=== PATIENT | female | born 1950 | race African-American/Black ===

== ENCOUNTER 2017-12-07 18:12 | Inpatient (IN) | payer OTHER, MEDICARE ==
[~2017-12-07] VITALS: Ht 162.6 cm; Wt 73.5 kg
--- NOTE | 2017-12-07 18:31 | NUR ---
PT TO ER BED 11. 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 A/A/O. AMULATORY. CHANGED TO GOWM. SIDE RAIS LUP. HOB ELEVATED. CONNECTED TO MONITOR. AWAITING EVALUATION BY ER PROVIDER.
[2017-12-07] MEDS ORDERED: NITROGLYCERIN PACKET 1 GM PACKET ONE (18:42)
[2017-12-07] MEDS ORDERED: ASPIRIN 325 MG TABLET ONE (18:42)
--- NOTE | 2017-12-07 18:46 | NUR ---
MEDICATED PER MD ORDER. EKG AT BEDSIDE.
[2017-12-07 18:48] LABS: BASOPHILS # (AUTO) 0.1 /CMM (0.0-0.2); BASOPHILS % (AUTO) 1.5 % (0.0-2.0); EOSINOPHILS % (AUTO) 0.9 % (0.0-6.0); HEMATOCRIT 36 % (33-45); HEMOGLOBIN 12.5 g/dL (11.5-14.8); LYMPHOCYTES # (AUTO) 2.4 /CMM (0.8-4.8); LYMPHOCYTES % (AUTO) 32.2 % (20.0-44.0); MEAN CORPUSCULAR HGB CONC 35 g/dl (31.0-36.0); MEAN CORPUSCULAR VOLUME 94 fL (82-100); MONOCYTES # (AUTO) 0.4 /CMM (0.1-1.30); MONOCYTES % (AUTO) 5.7 % (2.0-12.0); NEUTROPHILS # (AUTO) 4.3 /CMM (1.8-8.9); NEUTROPHILS % (AUTO) 59.7 % (43.0-81.0); PLATELET COUNT (AUTO) 290 /CMM (150-450); RDW COEFFICIENT OF VARIATION 13.7 (11.5-15.0); RED BLOOD CELL COUNT(AUTO) 3.82 MIL/uL (4.0-5.2); WHITE BLOOD COUNT (AUTO) 7.3 K/uL (4.3-11.0)
[2017-12-07 18:58] LABS: CALCIUM, SERUM 9.4 mg/dL (8.5-10.1); CARBON DIOXIDE 27 mmol/L (21-32); CHLORIDE 102 mmol/L (98-107); CREATININE 0.9 mg/dL (0.6-1.3); GLUCOSE 134 mg/dL (74-106); POTASSIUM 3.8 mmol/L (3.5-5.1); SODIUM SERUM 137 mmol/L (136-145); UREA NITROGEN, BLOOD 17 mg/dL (7-18)
[2017-12-07] MEDS ORDERED: ASPIRIN 325 MG TABLET PO ONE (19:00)
[2017-12-07] MEDS ORDERED: NITROGLYCERIN PACKET 1 GM PACKET TD ONE (19:00)
[2017-12-07 19:03] LABS: ALANINE AMINOTRANSFERASE 28 U/L (12-78); ALBUMIN 4.2 g/dL (3.4-5.0); ALKALINE PHOSPHATASE 80 U/L (46-116); ASPARTATE AMINOTRANSFERASE 22 U/L (15-37); BILIRUBIN,DIRECT 0.1 mg/dL (0.0-0.2); BILIRUBIN,TOTAL 0.5 mg/dL (0.2-1.0); TOTAL PROTEIN, SERUM 8.3 g/dL (6.4-8.2)
--- NOTE | 2017-12-07 19:03 | NUR ---
RECEIVED REPORT FROM ARIK KIDD FOR TOMMY.
[2017-12-07 19:06] LABS: TROPONIN I < 0.017 ng/mL (0.00-0.056)
[2017-12-07 19:07] LABS: INR 0.94 (0.85-1.15)
[2017-12-07] MEDS ORDERED: POTA10CA43 PO (19:28)
[2017-12-07] MEDS ORDERED: FURO20TA4 PO (19:28)
[2017-12-07] MEDS ORDERED: AMLO10TA6 PO (19:28)
[2017-12-07] MEDS ORDERED: BENA10TA9 PO (19:28)
--- NOTE | 2017-12-07 20:00 | NUR ---
[facility])- [phone]
--- NOTE | 2017-12-07 20:03 | NUR ---
report given to ARIK Khan for hernán.
[2017-12-07 20:30] VITALS: BP 147/81
[2017-12-07] MEDS ORDERED: ASPI-1169 PO (20:53)
--- NOTE | 2017-12-07 20:58 | NUR ---
TELE/RN OPENING NOTES PT ARRIVED TO UNIT VIA GURNEY FROM ER. A/OX4. AT BEDSIDE. ON ROOM AIR, BREATHING EVEN AND UNLABORED. DENIES CP, N/V AND SOB AT THIS TIME. SAYS SHE WAS HAVING "CHEST DISCOMFORT" WHICH HAS NOW RESOLVED. IV TO RAC PATENT AND INTACT. BED ZERO-ED WITHOUT PUMP AT FOOT OF THE BED. PLACED ON TELE MONITOR, SHOWING SINUS RHYTHM, HR 90. ORIENTED TO ROOM AND CALL LIGHT. SNACK AT WATER PROVIDED. PT TO BE KEPT NPO POST MIDNIGHT FOR CARDIO CONSULT, PT VERBALIZED UNDERSTANDING. BED IN LOW/LOCKED POSITION WITH CALL LIGHT IN REACH. SIDE RAILS UPX2. ALL BELONGINGS ACCOUNTED FOR AND LIST COMPLETED/PLACED IN THE CHART. WILL CONTINUE TO MONITOR
[2017-12-07 21:00] VITALS: BP 147/81
[2017-12-07] MEDS ORDERED: MORPHINE SULFATE INJ 2 MG/ML DISP.SYRIN IV PRN (21:00)
[2017-12-07] MEDS ORDERED: ACETAMINOPHEN 325 MG TABLET PO PRN (21:00)
[2017-12-07] MEDS ORDERED: MAGNESIUM HYDROXIDE 30 ML UDC PO PRN (21:00)
[2017-12-07] MEDS ORDERED: MAG HYDROX/AL HYDROX/SIMETH 30 ML UDC PO PRN (21:00)
[2017-12-07] MEDS ORDERED: ZOLPIDEM TARTRATE 5 MG TABLET PO PRN (21:00)
[2017-12-07] MEDS ORDERED: HYDROCODONE/APAP 5/325MG 1 EACH TABLET PO PRN (21:00)
[2017-12-07] MEDS ORDERED: ONDANSETRON HCL/PF 4 MG/2 ML VIAL IVP PRN (21:00)
[2017-12-07] MEDS ORDERED: NITROGLYCERIN 0.4 MG/TAB BOTTLE SL PRN (21:00)
[2017-12-07] MEDS ORDERED: Z GUARD REMEDY 2 OZ OINT TP PRN (21:00)
[2017-12-07] MEDS: SIMVASTATIN 20 MG TABLET PO SCH (22:16)
--- NOTE | 2017-12-07 22:22 | NUR ---
TELE/RN NOTES PT C/O MILD HEADACHE. ADMINISTERED PRN TYLENOL ORDERED. WILL MONITOR FOR EFFECTIVENESS RT AT BEDSIDE FOR EKG
[2017-12-08] VITALS: BP 124/75
[2017-12-08 04:00] VITALS: BP_SYST 124; BP_DIAS 75; BP_DIAS 80
[2017-12-08 06:24] LABS: HEMATOCRIT 33 % (33-45); MEAN CORPUSCULAR HGB CONC 34 g/dl (31.0-36.0); MEAN CORPUSCULAR VOLUME 94 fL (82-100); PLATELET COUNT (AUTO) 256 /CMM (150-450); RDW COEFFICIENT OF VARIATION 14.5 (11.5-15.0); RED BLOOD CELL COUNT(AUTO) 3.44 MIL/uL (4.0-5.2); WHITE BLOOD COUNT (AUTO) 4.9 K/uL (4.3-11.0)
[2017-12-08 06:42] LABS: CALCIUM, SERUM 9.1 mg/dL (8.5-10.1); CREATININE 0.8 mg/dL (0.6-1.3); PHOSPHORUS 3.9 mg/dL (2.5-4.9); POTASSIUM 4.1 mmol/L (3.5-5.1)
[2017-12-08 06:46] LABS: THYROID STIMULATING HORMONE 5.592 uIU/mL (0.358-3.74)
--- NOTE | 2017-12-08 06:48 | NUR ---
TELE/RN CLOSING NOTES PT RESTING IN BED. A/OX4. ON ROOM AIR, BREATHING EVEN AND UNLABORED. DENIES SOB, CP, N/V AT THIS TIME. REMAINS ON TELE MONITOR SHOWING SR WITH HR 70. IV TO RAC PATENT AND INTACT. CURRENTLY NPO FOR CARDIO CONSULT. PT AWARE AND VERBALIZED UNDERSTANDING. NO SIGNIFICANT CHANGES OVERNIGHT. KEPT PT COMFORTABLE. ALL NEEDS MET. BED REMAINS IN LOW/LOCKED POSITION WITH CALL LIGHT IN REACH. SIDE RAILS UPX2. WILL ENDORSE TO DAY SHIFT RN TOMMY.
--- NOTE | 2017-12-08 07:27 | NUR ---
WALL INSULATION SPRAYER OPENING NOTES RECEIVED PATIENT IN STABLE CONDITION. IN NO APPARENT DISTRESS. BEDSIDE RAILS ARE UPX2. BED IS LOCKED AND LOWERED. CALL LIGHT IS WITHIN REACH. IV LINE IS INTACT AND PATENT. WILL CONTINUE TO MONITOR.
[2017-12-08 07:57] VITALS: BP 129/73
[2017-12-08] MEDS: ASPIRIN EC 81 MG TABLET.DR PO SCH (08:33)
[2017-12-08] MEDS: BENAZEPRIL HCL 10 MG TABLET PO SCH (08:34)
[2017-12-08] MEDS ORDERED: AMLODIPINE BESYLATE 10 MG TABLET PO SCH (09:00)
[2017-12-08 10:08] LABS: LYMPHOCYTES % (MANUAL) 51 % (16-48); MONOCYTES % (MANUAL) 9 % (0-11.0); NEUTROPHILS % (MANUAL) 37 (42-76)
[2017-12-08 10:09] LABS: EOSINOPHILS % (MANUAL) 3 % (0-4)
--- NOTE | 2017-12-08 15:00 | NUR ---
RN OPEN NOTES RECEIVED REPORT FROM ARIK LUJAN. PATIENT IS IN BED, AWAKE AND ALERT TO NAME, PLACE AND TIME. NO SIGNS AND SYMPTOMS OF DISTRESS. DENIED PAIN. BED IN LOW POSITION, LOCKED AND TWO SIDE RAILS ARE UP FOR SAFETY. CALL LIGHT WITHIN REACH. WILL CONTINUE TO ASSESS AND MONITOR PATIENT.
[2017-12-08 16:00] VITALS: BP 150/80
--- NOTE | 2017-12-08 18:57 | NUR ---
RN CLOSING NOTES PATIENT IS IN BED. ALERT AND ORIENTED TO NAME, PLACE AND TIME. NO SIGNS AND SYMPTOMS OF DISTRESS. DENIED PAIN. RESPIRATION REGULAR AND UNLABORED. IV SITE IS INTACT AND PATENT. PATIENT KEPT DRY, CLEAN AND SAFE. ALL NURSING CARE ANTICIPATED AND ATTENDED FOR. BED IS IN LOW POSITION, LOCKED AND TWO SIDE RAILS ARE UP. CALL LIGHT WITHIN REACH FOR SAFETY. WILL ENDORSE TO POLITICAL AIDE NURSE TO [facility].
--- NOTE | 2017-12-08 19:51 | NUR ---
MS/RN OPENING NOTES PT AWAKE, SITTING UP IN BED. ON ROOM AIR, BREATHING EVEN AND UNLABORED. DENIES SOB, CHEST PAIN/DISCOMFORT, N/V AT THIS TIME. IV TO RAC PATENT AND INTACT. PT FOR NM STRESS TEST TOMORROW, CONSENTS SIGNED IN THE CHART. PT VERBALIZES UNDERSTANDING AND WILL BE KEPT NPO POST MIDNIGHT. BED IN LOW/LOCKED POSITION WITH CALL LIGHT IN REACH. SIDE RAILS UPX2. WILL CONTINUE TO MONITOR
[2017-12-08 20:00] VITALS: BP 122/80
[2017-12-08 20:14] VITALS: BP 122/80
[2017-12-08] MEDS: SIMVASTATIN 20 MG TABLET PO SCH (22:28)
--- NOTE | 2017-12-09 07:20 | NUR ---
MS/RN CLOSING NOTES PT AWAKE, SITTING UP IN BED. A/OX4. REMAINS ON ROOM AIR, BREATHING EVEN AND UNLABORED. NO SOB, DENIES PAIN, CHEST DISCOMFORT THROUGHOUT SHIFT. NO SIGNIFICANT CHANGES OVERNIGHT. NEW IV INSERTED TO LEFT FA #[id number]. KEPT PT COMFORTABLE DURING SHIFT. ALL NEEDS MET. PT KEPT NPO FOR LEXISCAN TODAY. CONSENT SIGNED AND IN CHART. BED IN LOW/LOCKED POSITION WITH CALL LIGHT IN REACH. SIDE RAILS UPX2. ENDORSED TO DAY SHIFT RN TOMMY.
--- NOTE | 2017-12-09 07:24 | NUR ---
RN OPENING NOTES RECEIVED PATIENT IN BED RESTING, A/O X4. NO ACUTE DISTRESS, NO SOB. DENIED PAIN OR DISCOMFORT AT THIS TIME. IV SITE INTACT AND PATENT. KEPT PATIENT NPO FOR STRESS TEST TODAY. KEPT PATIENT SAFE AND COMFORTABLE. BED IN LOW/LOCKED POSITION, SIDERAILS UPX2, CALL LIGHT IN REACH. WILL CONTINUE TO MONITOR ACCORDINGLY.
[2017-12-09 07:54] VITALS: BP 113/74
[2017-12-09 08:00] VITALS: BP 113/74
[2017-12-09] MEDS ORDERED: REGADENOSON 0.4 MG/5 ML DISP.SYRIN IVP ONE (08:30)
--- NOTE | 2017-12-09 09:43 | NUR ---
NM: CARDIAC STRESS TEST WAS COMPLETED. TECH:RB.
[2017-12-09] MEDS: BENAZEPRIL HCL 10 MG TABLET PO SCH (09:45)
[2017-12-09] MEDS: ASPIRIN EC 81 MG TABLET.DR PO SCH (09:45)
[2017-12-09 16:00] VITALS: BP 122/74
--- NOTE | 2017-12-09 19:21 | NUR ---
RN CLOSING NOTES PATIENT IN STABLE CONDITION. ALL NEEDS ATTENDED AND PROVIDED. KEPT PATIENT SAFE AND COMFORTABLE. BED IN LOW/LOCKED POSITION, SIDERAILS UPX2, CALL LIGHT IN REACH. ENDORSED TO NIGHT RN FOR TOMMY.
--- NOTE | 2017-12-09 19:30 | NUR ---
MS RN OPENING NOTES RECEIVED PT SITTING UPRIGHT IN BED. A/O X4, AFEBRILE. RESPIRATIONS ARE EVEN AND UNLABORED, NOT IN ANY ACUTE DISTRESS NOTED. DENIES ANY PAIN, SOB, N/V AT THIS TIME. IV SITE INTACT, NO INFILTRATION NOTED. DRESSING KEPT CLEAN AND DRY. INFORMED PT'S BED ABOUT BEING A LITTLE TOO HIGH AND MAY WANT TO BRING BED DOWN FOR SAFETY REASONS. PER PT, "I AM FINE. I LIKE IT HIGH." EDUCATED ABOUT SAFETY MEASURES, PT VERBALIZED UNDERSTANDING. WILL CONTINUE TO MONITOR THROUGHOUT SHIFT.
[2017-12-09 19:55] VITALS: BP 117/62
[2017-12-09 20:00] VITALS: BP 117/62
--- NOTE | 2017-12-09 23:30 | NUR ---
MS RN NOTES PT ASSIGNED TO ANOTHER RN. PT IS CURRENTLY STABLE AT THIS TIME. REPORT GIVEN FOR CONTINUITY OF CARE.
--- NOTE | 2017-12-10 06:26 | NUR ---
MS RN CLOSING NOTE Patient was seen AAOx4, breathing comfortably on RA with no SOB, and no signs of acute distress. Vitals WNL, no complaints of chest pain. Patient slept well overnight. SL 22g IV is in left FA. Bed is in low/locked position, two side rails up, and call monsalve within reach. All patient needs attended to throughout shift. Patient care will be endorsed to day shift RN.
--- NOTE | 2017-12-10 07:15 | NUR ---
MS/RN OPENING NOTE PATIENT IS RECEIVED IN BED AWAKE. ALERT AND ORIENTED X4. DENIES SOB. RESPIRATION REGULAR AND UNLABORED. DENIES PAIN. NOTED BED BEING HIGH AND IS ENCOURAGED TO LOWER THE BED FOR SAFETY. LFA G 22 PATENT AND SALINE LOCKED SIDE RAILS UP X2. CALL LIGHT WITHIN REACH. WILL CONTINUE TO MONITOR.
[2017-12-10 08:00] VITALS: BP 123/76
--- NOTE | 2017-12-10 08:20 | NUR ---
MS RN RECEIVED ON BED,AWAKE,ALERT,ORIENTED X4,NOT IN ANY FORM OF DISTRESS, RESPIRATION EVEN AND UNLABORED,NO SOB NOTED, LUNGS ARE CLEAR,ABDOMEN SOFT,POSITIVE BOWEL SOUNDS,DENIES PAIN AT THIS TIME, WILL MONITOR PATIENT'S CONDITION.
--- NOTE | 2017-12-10 09:00 | NUR ---
MS ELISE BREAKFAST SERVED,DUE MEDS GIVEN,TOLERATED WELL.
[2017-12-10 09:49] VITALS: BP 123/76
[2017-12-10] MEDS: BENAZEPRIL HCL 10 MG TABLET PO SCH (09:49)
--- NOTE | 2017-12-10 11:30 | NUR ---
MS RN WAS SEEN BY DR. JOHNSON, STILL WAITING FOR RERE ZIMMERMAN TO ORDER DISCHARGE,AND SEE PATIENT ,PAGD AND CALLED HIM.
--- NOTE | 2017-12-10 12:30 | NUR ---
MS ARIK JERNGIAN SAW PATIENT, AND WENT HOME W/ INSTRUCTIONS GIVEN.ALL NEEDS ATTENDED.
== END 2017-12-10 13:04 | disposition home or self-care (01) | DRG 206 ==
LOC: ER 18:18 → TELE 20:12 → MED 12-08 10:37
DX: M94.0 Chondrocostal junction syndrome [Tietze] (principal); E03.9 Hypothyroidism, unspecified; I10 Essential (primary) hypertension; I25.10 Atherosclerotic heart disease of native coronary artery without angina pectoris; Z85.3 Personal history of malignant neoplasm of breast; Z90.10 Acquired absence of unspecified breast and nipple; Z88.4 Allergy status to anesthetic agent; Z79.82 Long term (current) use of aspirin; Z79.899 Other long term (current) drug therapy; Z92.21 Personal history of antineoplastic chemotherapy; Z92.3 Personal history of irradiation; Z72.89 Other problems related to lifestyle; R60.9 Edema, unspecified; T46.1X5A Adverse effect of calcium-channel blockers, initial encounter; T50.1X5A Adverse effect of loop [high-ceiling] diuretics, initial encounter; Y92.009 Unspecified place in unspecified non-institutional (private) residence as the place of occurrence of the external cause
CPT/HCPCS: 36415; 71045-TC; 80048-TC; 80061-TC; 80076-TC; 83735-TC; 83880; 84100-TC; 84439-TC; 84443-TC; 84480; 84484-TC; 85025-TC; 85730-TC; 87081-TC; 93307-TC; A4606; A9502; J2785; Z7610

== ENCOUNTER 2018-11-17 23:20 | Inpatient (IN) | payer OTHER, MEDICARE ==
[~2018-11-17] VITALS: Ht 162.6 cm; Wt 74.4 kg
[~2018-11-17 23:20] MED LIST: AMLO10TA7 PO; ASPI-1169 PO; BENA10TA9 PO; FURO20TA4 PO; POTA10CA43 PO
--- NOTE | 2018-11-17 23:25 | NUR ---
BIB RA TO ER BED 8. AAOX4. NAD. CAME IN W/ C/O PALPITATION 140S PRIOR TO GETTING TO ER AND SOB. PT DENIES OF CHEST PAIN OR PRESSURE. PT'S HR IN 120S AND NO SOB AT THIS. PT ON MONITOR.AWAITING MD OVALLES.
--- NOTE | 2018-11-17 23:30 | NUR ---
BLOOD DRAWN AND SENT TO LABS.
--- NOTE | 2018-11-17 23:35 | NUR ---
TECH AT BEDSIDE FOR EKG
[2018-11-18 00:08] LABS: BASOPHILS # (AUTO) 0.1 /CMM (0.0-0.2); BASOPHILS % (AUTO) 1.6 % (0.0-2.0); EOSINOPHILS % (AUTO) 2.4 % (0.0-6.0); HEMATOCRIT 39 % (33-45); HEMOGLOBIN 13.4 g/dL (11.5-14.8); LYMPHOCYTES # (AUTO) 2.7 /CMM (0.8-4.8); LYMPHOCYTES % (AUTO) 47.6 % (20.0-44.0); MEAN CORPUSCULAR HGB CONC 34 g/dl (31.0-36.0); MEAN CORPUSCULAR VOLUME 97 fL (82-100); MONOCYTES # (AUTO) 0.4 /CMM (0.1-1.30); MONOCYTES % (AUTO) 7.9 % (2.0-12.0); NEUTROPHILS # (AUTO) 2.3 /CMM (1.8-8.9); NEUTROPHILS % (AUTO) 40.5 % (43.0-81.0); PLATELET COUNT (AUTO) 280 /CMM (150-450); RED BLOOD CELL COUNT(AUTO) 4.07 MIL/uL (4.0-5.2); WHITE BLOOD COUNT (AUTO) 5.6 K/uL (4.3-11.0)
[2018-11-18] MEDS ORDERED: ENALAPRILAT INJ (1.25 MG/ML) 1.25 MG/ML VIAL IV ONE (00:20)
[2018-11-18] MEDS ORDERED: NITROGLYCERIN 0.4 MG/TAB BOTTLE ONE (00:24)
[2018-11-18] MEDS ORDERED: ENALAPRILAT INJ (1.25 MG/ML) 1.25 MG/ML VIAL IV PRN ×2 (00:30→02:30)
[2018-11-18] MEDS ORDERED: IV NS 0.9% 500 ML BAG IV ONE (00:30)
--- NOTE | 2018-11-18 00:35 | NUR ---
PT GIVEN NITRO 0.4 SL BP 164/91.
--- NOTE | 2018-11-18 00:40 | NUR ---
PALPITATION WAS RELIEVED BY NITROGLYCERIN.
--- NOTE | 2018-11-18 00:43 | NUR ---
ENALAPRIL 1.25MG WAS TAKEN FROM ICU PER NURSING SUP D/T OUT OF STOCK IN ER.
[2018-11-18 00:52] LABS: CALCIUM, SERUM 9.6 mg/dL (8.5-10.1); CARBON DIOXIDE 27 mmol/L (21-32); CHLORIDE 101 mmol/L (98-107); GLUCOSE 102 mg/dL (74-106); SODIUM SERUM 142 mmol/L (136-145); UREA NITROGEN, BLOOD 20 mg/dL (7-18)
[2018-11-18 00:54] LABS: ALANINE AMINOTRANSFERASE 30 U/L (12-78); ALBUMIN 3.4 g/dL (3.4-5.0); ALKALINE PHOSPHATASE 99 U/L (46-116); ASPARTATE AMINOTRANSFERASE 28 U/L (15-37); BILIRUBIN,DIRECT 0.1 mg/dL (0.0-0.2); BILIRUBIN,TOTAL 0.2 mg/dL (0.2-1.0); LIPASE 274 U/L (73-393); TOTAL PROTEIN, SERUM 8.8 g/dL (6.4-8.2)
--- NOTE | 2018-11-18 01:02 | NUR ---
PT TO BE ADMITTED TO [facility] FOR CHF.
--- NOTE | 2018-11-18 01:02 | NUR ---
DR FARIAS IS AT THE BEDSIDE.
[2018-11-18] MEDS ORDERED: FUROSEMIDE 40 MG/4 ML VIAL ONE (01:17)
[2018-11-18] MEDS ORDERED: ASPIRIN 325 MG TABLET ONE (01:18)
--- NOTE | 2018-11-18 01:27 | NUR ---
RERE LYNN PAGED FOR PANEL CALL
[2018-11-18] MEDS ORDERED: ASPIRIN 325 MG TABLET PO ONE (01:30)
[2018-11-18] MEDS ORDERED: FUROSEMIDE 40 MG/4 ML VIAL IV ONE (01:30)
[2018-11-18] MEDS ORDERED: NITROGLYCERIN 0.4 MG/TAB BOTTLE SL PRN (01:30)
--- NOTE | 2018-11-18 01:45 | NUR ---
REPORT GIVEN TO ARIK OGLESBY. PT GOING TO [phone]
--- NOTE | 2018-11-18 02:25 | NUR ---
GREENHOUSE MANAGERCONCRETE BUCKET HOOKER NOTES ADMITTED A 68 YEAR OLD FEMALE, TRANSPORTED FROM ER VIA GURNEY ACCOMPANIED BY , PATIENT IS ALERT ORIENTED X4, VERY PLEASANT LADY, NO SIGNS OF ACUTE CARDIAC AND RESPIRATORY DISTRESS NOTED, INITIAL ASSESSMENT DONE, NO SKIN ISSUES, VITAL SIGNS TAKEN AND RECORDED, TELE MONITOR READS SR 96, DENIES ANY PAIN AND DISCOMFORT, PERIPHERAL IV LINE ON HER LEFT AC G#20 INTACT AND PATENT. REPOSITIONED FOR COMFORT, ORIENTED TO UNIT AND THE USE OF CALL LIGHT, ALL SAFETY MEASURES IN PLACE, KEEP RESTED, ALL NEEDS ATTENDED, KEPT WARM, WILL CONTINUE TO MONITOR ACCORDINGLY.
[2018-11-18] MEDS ORDERED: Z GUARD REMEDY 2 OZ OINT TP PRN (02:30)
[2018-11-18] MEDS ORDERED: ONDANSETRON HCL/PF 4 MG/2 ML VIAL IVP PRN (02:30)
[2018-11-18] MEDS ORDERED: MAGNESIUM HYDROXIDE 30 ML UDC PO PRN (02:30)
[2018-11-18] MEDS ORDERED: HYDROCODONE/APAP 5/325MG 1 EACH TABLET PO PRN (02:30)
[2018-11-18] MEDS ORDERED: ACETAMINOPHEN 325 MG TABLET PO PRN (02:30)
[2018-11-18] MEDS ORDERED: MAG HYDROX/AL HYDROX/SIMETH 30 ML UDC PO PRN (02:30)
[2018-11-18 03:00] VITALS: BP 148/89
[2018-11-18] MEDS ORDERED: ENOXAPARIN SODIUM 40 MG/0.4 ML DISP.SYRIN SQ ONE (03:00)
--- NOTE | 2018-11-18 07:30 | NUR ---
RN NOTES ALL NEEDS ATTENDED AND MET, KEPT RESTED, SEEN BY DR. JOHNSON, SAFETY MEASURES IN PLACED, ENDORSED TO AM NURSE FOR CONTINUITY OF CARE.
[2018-11-18 07:44] LABS: BASOPHILS % (AUTO) 0.8 % (0.0-2.0); EOSINOPHILS % (AUTO) 2.7 % (0.0-6.0); HEMATOCRIT 38 % (33-45); HEMOGLOBIN 12.5 g/dL (11.5-14.8); LYMPHOCYTES # (AUTO) 2.1 /CMM (0.8-4.8); LYMPHOCYTES % (AUTO) 46.2 % (20.0-44.0); MEAN CORPUSCULAR HGB CONC 33 g/dl (31.0-36.0); MEAN CORPUSCULAR VOLUME 96 fL (82-100); MONOCYTES # (AUTO) 0.4 /CMM (0.1-1.30); MONOCYTES % (AUTO) 8.9 % (2.0-12.0); NEUTROPHILS # (AUTO) 1.9 /CMM (1.8-8.9); NEUTROPHILS % (AUTO) 41.4 % (43.0-81.0); PLATELET COUNT (AUTO) 268 /CMM (150-450); WHITE BLOOD COUNT (AUTO) 4.6 K/uL (4.3-11.0)
--- NOTE | 2018-11-18 07:59 | NUR ---
VETERINARY EPIDEMIOLOGIST opening notes Received patient on room air, no sob noted. Patient denies pain or discomfort at this time. Patient is a/o x4. Patient is lying down in bed comfortably. Bed at the lowest setting, call light within reach.
[2018-11-18 08:00] VITALS: BP 157/99
[2018-11-18 08:03] LABS: CALCIUM, SERUM 9.5 mg/dL (8.5-10.1); CREATININE 0.8 mg/dL (0.6-1.3); POTASSIUM 3.8 mmol/L (3.5-5.1)
[2018-11-18] MEDS ORDERED: ISOSORBIDE DINITRATE (20MG) 20 MG TABLET PO SCH (09:00)
[2018-11-18] MEDS ORDERED: POTASSIUM CHLORIDE 10 MEQ TABLET.SA PO SCH (09:00)
[2018-11-18] MEDS ORDERED: METOPROLOL TARTRATE 50 MG TABLET PO SCH (09:00)
[2018-11-18] MEDS ORDERED: FUROSEMIDE 20 MG TABLET PO SCH (09:00)
[2018-11-18] MEDS: hydrALAZINE HCL 50 MG TABLET PO SCH ×2 (09:00→12:47)
[2018-11-18] MEDS ORDERED: ASPIRIN 81 MG TAB.CHEW PO SCH (09:00)
[2018-11-18] MEDS ORDERED: BENAZEPRIL HCL 10 MG TABLET PO SCH (09:00)
[2018-11-18] MEDS ORDERED: TRIAMTERENE/HYDROCHLOROTHIAZID (37.5/25MG) 1 UDCAP PO SCH (09:00)
[2018-11-18] MEDS ORDERED: AMLODIPINE BESYLATE 10 MG TABLET PO SCH (09:00)
[2018-11-18 16:00] VITALS: BP 128/77
[2018-11-18] MEDS ORDERED: METO50TA16 PO (16:20)
[2018-11-18] MEDS ORDERED: HYDR-4077 PO (16:20)
[2018-11-18] MEDS ORDERED: ISOS20TA8 PO (16:20)
[2018-11-18] MEDS ORDERED: TRIA1CAP20 PO (16:20)
--- NOTE | 2018-11-18 18:01 | NUR ---
RN MS DISCHARGE NOTES Patient discharged on room air, no sob noted. Patient denies pain at this time. Patient's discharge form filled and signed, patients belongings signed as well. Patient has her belongings with her. Patient's discharge information given to patient and patient understands.
[2018-11-19] MEDS ORDERED: ENOXAPARIN SODIUM 40 MG/0.4 ML DISP.SYRIN SQ SCH (09:00)
[2018-11-21 10:12] LABS: *SPE A/G RATIO 1.2 (0.7-1.7); *SPE ALBUMIN 4.1 g/dL (2.9-4.4); *SPE ALPHA-1-GLOBULIN 0.2 g/dL (0.0-0.4); *SPE ALPHA-2-GLOBULIN 0.8 g/dL (0.4-1.0); *SPE BETA GLOBULIN 1.2 g/dL (0.7-1.3); *SPE GLOBULIN, TOTAL 3.5 g/dL (2.2-3.9); *SPE M-SPIKE Not Observed g/dL (Not Observed); *SPEGAMMA GLOBULIN 1.3 g/dL (0.4-1.8)
== END 2018-11-18 17:45 | disposition home or self-care (01) | DRG 292 ==
LOC: ER 23:26 → TELE 11-18 01:17 → MED 11-18 08:52
PROVIDERS: ADMIT Family Medicine; ATTEND Family Medicine
DX: I11.0 Hypertensive heart disease with heart failure (principal); I16.1 Hypertensive emergency; N17.9 Acute kidney failure, unspecified; I50.33 Acute on chronic diastolic (congestive) heart failure; E03.9 Hypothyroidism, unspecified; Z92.21 Personal history of antineoplastic chemotherapy; Z90.10 Acquired absence of unspecified breast and nipple; Z85.3 Personal history of malignant neoplasm of breast; Z79.82 Long term (current) use of aspirin; E78.5 Hyperlipidemia, unspecified; F10.10 Alcohol abuse, uncomplicated; Y90.9 Presence of alcohol in blood, level not specified; Z88.4 Allergy status to anesthetic agent; Z79.899 Other long term (current) drug therapy; T46.1X5A Adverse effect of calcium-channel blockers, initial encounter; Y92.009 Unspecified place in unspecified non-institutional (private) residence as the place of occurrence of the external cause
CPT/HCPCS: 36415; 71045-TC; 80048-TC; 80061-TC; 80076-TC; 83690-TC; 83735-TC; 83880; 84155; 84165; 84439-TC; 84484-TC; 85025-TC; 87081-TC; 93307-TC; G0378; J1650; J1940; J2405; J3490; J7040